=== PATIENT | male | born 1945 | race Caucasian/White ===

== ENCOUNTER 2019-07-19 13:11 | Outpatient (CLI) | payer OTHER, SELFPAY ==
[2019-07-19 13:19] VITALS: BP 104/70; PULSE 76; RESP 18; TEMP 36.8; O2SAT 94
--- NOTE | 2019-07-19 13:54 | PDOC.PAIN ---
Pain Clinic Procedure Note Procedure Note Procedure Note: PROCEDURE NOTE CAUDAL EPIDURAL STERIOID INJECTION Date of Service: July 19, 2019 Patient: FLACO SILVESTRE Provider: Kandice Love MD FLACO SILVESTRE has been [facility] for caudal epidural steroid injection. Pre-operative diagnosis: lumbar radiculopathy, likely post-laminectomy syndrome Post-operative diagnosis: same as above COMMENTS: Referring provider: Ms Jesenia Webster SAWYER Symptoms: lower back, bilateral buttock Imaging reviewed: MRI L spine reviewed Of note, patient has been cared for at [facility] for pain management and I logged into [employer] system and reviewed his chart. He has a history of osteoymyelitis in 1989, history of spinal stenosis with multiple back surgeries including L3-5 laminectomy with instrumented fusion (removal of L5 pedicle screw) and L2-3 laminectomy with local bone graft fusion. These surgeries were done by Dr Romero. Patient had prior bilateral lumbar medial branch nerve block targeting L5/S1 facet joints which provided minimal pain relief. He has gotten variable degree of pain relief from SI joint injections. He is referred to [facility] to discuss lateral sacral branch nerve block, however, after discussion with Ms Webster in clinic, decision was made for a trial of caudal SHAUNA. FLACO was interviewed and the medical record was reviewed. There were no medical, pharmacologic, radiographic or other structural contraindications to attempting fluoroscopically guided epidural steroid injection. Risks and expected side effects as well as potential benefit of the procedure were reviewed with Mr SILVESTRE, and his voiced concerns were addressed. The printed consent form was signed and witnessed. Standard time-out procedure was performed. Mr SILVESTRE was placed in the prone position on the fluoroscopy table and automated blood pressure cuff and pulse oximeter applied. The skin entry point for entering/approaching the epidural space by a caudal approach through the sacral hiatus ed identified with surgical skin marking. Following thorough chlorhexidine preparation x 2 of the skin and draping and 1% lidocaine infiltration of the skin entry point and subcutaneous tissues, a 17 gauge Touhy needle was placed under fluoroscopic guidance into the epidural space. Needle tip placement and depth were aided and confirmed by fluoroscopy in the lateral and AP position. There was no paresthesia or return of blood or CSF through the needle. 1 cc of Omnipaque 240 was injected with clear epidural spread confirmed with fluoroscopy. An Arrow 19G radio-opaque epidural catheter was advanced into the epidural space to the L5-S1 and 1 cc of Omnipaque 240 was injected with clear epidural spread. 80 mg of Depomedrol was injected. There was no unusual discomfort expressed by FLACO . The needle and catheter were then flushed with 2 cc of 1% Lidocaine and 2cc of preseravtive free normal saline. they were removed without difficulty. (48 cc of Omnipaque was wasted) Mr SILVESTRE's vital signs were stable throughout the procedure and were as recorded in the docflowsheet by the nursing staff. If given, dosages of intravenous drugs for anxiolysis and analgesia were documented in MAR. Follow up plans and appointments were discussed with Mr SILVESTRE. Post procedure instruction was given as documented in nursing documentation and having met discharge criteria, He was [facility] from the [facility]. COMMENTS: No apparent complications. This procedure can be completed up to 3 times per 12 months. Repeat if this provides significant pain relief. Follow-up with Ms Webster on prn basis. I personally completed the entire procedure. Kandice Love MD [employer]hes[employer]/[facility] [employer] [facility]
[2019-07-19] MEDS: Omnipaque 240 MG/ML 50 ML BTL IJ (14:21)
[2019-07-19] MEDS: methylPREDNISolone ACETATE 80 MG/ML VIAL IJ (14:22)
[2019-07-19] MEDS: Normal Saline 20 ML VIAL (14:23)
[2019-07-19 14:30] VITALS: BP 144/73; PULSE 72; RESP 15; O2SAT 92
--- NOTE | 2019-07-19 15:12 | DI.RAD_ITS ---
EXAM: XR PAIN CLINIC LUMBAR SP 2V CLINICAL HISTORY: Dx: Lumbar Radiculopathy TECHNIQUE: Realtime digital imaging was performed. Fluoroscopy was utilized by Dr. Love during an epi dural steroid injection. COMPARISON: No exams were available for comparison FINDINGS: Please refer to the procedure report for complete details. Fluoro Time: 29.3 seconds
== END 2019-07-19 13:31 ==
PROVIDERS: Visit Provider Internal Medicine
DX: M54.16 Radiculopathy, lumbar region (principal)
CPT/HCPCS: 62323; 72100; J1040; Q9967